=== PATIENT | male | born 1995 | race Caucasian/White ===

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

== ENCOUNTER 2017-01-11 13:06 | Emergency (ER) | payer SELFPAY ==
[2017-01-11 13:18] VITALS: BP 131/81; TEMP 97.8; O2SAT 98
--- NOTE | 2017-01-11 13:27 | ED.PDOC ---
History of Present Illness - General Chief Complaint: Allergic Reaction Stated Complaint: arm swelling and redness Time Seen by Provider: 01/11/17 13:24 Source: patient, RN notes reviewed, Vital Signs reviewed - History of Present Illness Initial Comments: Patient presents with multiple insect bites on his hands and forearms. He is having swelling of his right hand that was worse yesterday and a rash starting on his L wrist. He has not taken anything for this. He sleeps on the floor at his grandparents house. Has not been working outside. Timing/Duration: 24 hours Severity: moderate Improving Factors: nothing Worsening Factors: nothing Associated Symptoms: denies symptoms Allergies/Adverse Reactions: Allergies NO KNOWN ALLERGY Allergy (Verified 01/11/17 13:18) Home Medications: Ambulatory Orders methylPREDNISolone TAB [Medrol Tab] 4 mg PO DAILY #1 pack 01/11/17 Review of Systems - Review of Systems Constitutional: States: no symptoms reported EENTM: States: no symptoms reported Respiratory: States: no symptoms reported Cardiology: States: no symptoms reported Musculoskeletal: States: no symptoms reported Skin: States: see HPI Neurological: States: no symptoms reported All other Systems: No Change from Baseline Past Medical History (General) - Patient Medical History Hx Seizures: No Hx Stroke: No Hx Dementia: No Hx Asthma: No Hx of COPD: No Hx Cardiac Disorders: No Hx Congestive Heart Failure: No Hx Pacemaker: No Hx Hypertension: No Hx Thyroid Disease: No Hx Diabetes: No Hx Gastroesophageal Reflux: No Hx Renal Disease: No Hx Cancer: No Hx of HIV: No Hx Hepatitis C: No Hx MRSA: No Surgical History: no surgical history - Vaccination History Hx Tetanus, Diphtheria Vaccination: Yes Hx Influenza Vaccination: Yes Hx Pneumococcal Vaccination: No Immunizations Up to Date: Yes - Social History Hx Tobacco Use: No Hx Chewing Tobacco Use: No Hx Alcohol Use: No Hx Substance Use: No Hx Substance Use Treatment: No Hx Depression: No Hx Physical Abuse: No Hx Emotional Abuse: No Hx Suspected Abuse: No - Activities of Daily Living Hospice Agency (if applicable):: None - Female History Patient is a Female of Child Bearing Age (10 -59 yrs old): No Patient : No Family Medical History - Family History Father Living Status: Still Living Hx Family Hypertension: Yes Hx Cardiac Disease: Yes - cabg Hx Family Diabetes: Yes Maternal Grandparents Living Status: Still Living Hx Cardiac Disease: Yes - triple bypass Physical Exam - Physical Exam General Appearance: Alert, Comfortable, No apparent distress, Well Developed, Well Groomed, Well Hydrated, Well Nourished Respiratory: chest non-tender, lungs clear, normal breath sounds, no respiratory distress, no accessory muscle use Cardiovascular/Chest: regular rate, rhythm, no gallop, no murmur Extremity: normal range of motion, non-tender, normal inspection Neurologic: alert, normal mood/affect, oriented x 3 Skin Exam: other - [place] insect bites with surrounding erythema and swelling on bilateral hands and forearms. Comments: Vital Signs - 24 hr 01/11/17 13:11 Temperature 97.8 F Pulse Rate [ 80 pulse ox] Respiratory 20 Rate Blood Pressure 131/81 [Left Arm] O2 Sat by Pulse 98 Oximetry Progress - Progress Progress: 01/11/17 13:29 Patient refused steroid shot. Would prefer to take orally. 01/11/17 14:05 Patient is feeling better. Will d/c home with steroid Rx and instructions to take OTC Benadryl and/or Claritin and take cool showers. Departure - Departure Clinical Impression: Insect stings Qualifiers: Encounter type: initial encounter Injury intent: accidental or unintentional Qualified Code(s): T63.481A - Toxic effect of venom of other arthropod, accidental (unintentional), initial encounter Time of Disposition: 14:08 Disposition: Discharge to Home or Self Care Condition: Good Departure Forms: ED Discharge - Pt. Copy, Patient Portal Self Enrollment Instructions: DI for Insect Bites and Stings Diet: resume usual diet Activity: increase activity as tolerated Prescriptions: methylPREDNISolone TAB [Medrol Tab] 4 mg PO DAILY #1 pack Home Medications: Ambulatory Orders methylPREDNISolone TAB [Medrol Tab] 4 mg PO DAILY #1 pack 01/11/17 Additional Instructions: Take Benadryl and Claritin as needed Take cool showers Wash with Tincture of Green soap
[2017-01-11] MEDS ORDERED: diphenhydrAMINE HCL 25 MG CAP PO ONE (13:30)
[2017-01-11] MEDS ORDERED: predniSONE 20 MG TAB PO ONE (13:30)
== END 2017-01-11 14:15 | disposition home or self-care (01) ==
LOC: ER 13:06
DX: S60.562A Insect bite (nonvenomous) of left hand, initial encounter (principal); S60.561A Insect bite (nonvenomous) of right hand, initial encounter; S50.862A Insect bite (nonvenomous) of left forearm, initial encounter; S50.861A Insect bite (nonvenomous) of right forearm, initial encounter; W57.XXXA Bitten or stung by nonvenomous insect and other nonvenomous arthropods, initial encounter; Y92.009 Unspecified place in unspecified non-institutional (private) residence as the place of occurrence of the external cause
CPT/HCPCS: J7512; Q0163

== ENCOUNTER 2017-02-20 15:25 | Emergency (ER) | payer SELFPAY ==
--- NOTE | 2017-02-20 16:27 | ED.PDOC ---
History of Present Illness - General Chief Complaint: Eye Problems Stated Complaint: got a piece of wood in L eye Time Seen by Provider: 02/20/17 15:25 Source: patient, RN notes reviewed, Vital Signs reviewed Exam Limitations: no limitations - History of Present Illness Initial Comments: ~1 hour prior to arrival patient was cutting limbs and a piece of wood flew into his L eye. Feels like it is still present and moving around. He did flush the eye and use eye drops w/o improvement. No visual changes. No pain. Timing/Duration: abrupt Severity: mild EENT Location: eye (L) Prearrival Treatment: flushing eyes Improving Factors: nothing Worsening Factors: nothing Associated Symptoms: denies symptoms Allergies/Adverse Reactions: Allergies NO KNOWN ALLERGY Allergy (Verified 01/11/17 13:18) Home Medications: Ambulatory Orders methylPREDNISolone TAB [Medrol Tab] 4 mg PO DAILY #1 pack 01/11/17 Review of Systems - Review of Systems Constitutional: States: no symptoms reported EENTM: States: see HPI, eye pain, tearing. Denies: blurred vision, double vision Respiratory: States: no symptoms reported Cardiology: States: no symptoms reported Neurological: Denies: headache All other Systems: No Change from Baseline Past Medical History (General) - Patient Medical History Hx Seizures: No Hx Stroke: No Hx Dementia: No Hx Asthma: No Hx of COPD: No Hx Cardiac Disorders: No Hx Congestive Heart Failure: No Hx Pacemaker: No Hx Hypertension: No Hx Thyroid Disease: No Hx Diabetes: No Hx Gastroesophageal Reflux: No Hx Renal Disease: No Hx Cancer: No Hx of HIV: No Hx Hepatitis C: No Hx MRSA: No - Vaccination History Hx Tetanus, Diphtheria Vaccination: Yes Hx Influenza Vaccination: Yes Hx Pneumococcal Vaccination: No - Social History Hx Tobacco Use: No Hx Chewing Tobacco Use: No Hx Alcohol Use: No Hx Substance Use: No Hx Substance Use Treatment: No Hx Depression: No Hx Physical Abuse: No Hx Emotional Abuse: No Hx Suspected Abuse: No - Female History Patient : No Family Medical History - Family History Father Living Status: Still Living Hx Family Hypertension: Yes Hx Cardiac Disease: Yes - cabg Hx Family Diabetes: Yes Maternal Grandparents Living Status: Still Living Hx Cardiac Disease: Yes - triple bypass Physical Exam - Physical Exam General Appearance: Alert, Comfortable, No apparent distress, Well Developed, Well Groomed, Well Hydrated, Well Nourished Eye Exam: left normal - No foreign body appreciated. No abrasion seen with flurosene dye Neck: full range of motion, supple Cardiovascular/Respiratory: no respiratory distress Neurologic: alert, normal mood/affect, oriented x 3 Skin Exam: normal color, warm/dry Progress - Progress Progress: 02/20/17 18:25 feeling much better after eye flushed with 1 L of NS Procedures - Eye Procedure Left Alcaine Drops Administered: Yes - 1 Eye Irrigated w/ Saline (cc's): 1,000 Cyclogel 2 Drops Administered: No Departure - Departure Clinical Impression: Foreign body of left eye Qualifiers: Encounter type: initial encounter Qualified Code(s): T15.92XA - Foreign body on external eye, part unspecified, left eye, initial encounter Time of Disposition: 18:26 Disposition: Discharge to Home or Self Care Condition: Good Departure Forms: ED Discharge - Pt. Copy, Patient Portal Self Enrollment Instructions: DI for Foreign Body in the Eye Diet: resume usual diet Activity: increase activity as tolerated Home Medications: Ambulatory Orders methylPREDNISolone TAB [Medrol Tab] 4 mg PO DAILY #1 pack 01/11/17
[2017-02-20] MEDS ORDERED: TETRACAINE HCL 0.5% OPHTH SOL 1 DROP OPHTH ONE (16:45)
[2017-02-20] MEDS ORDERED: SODIUM CHLORIDE 0.9% 1000ML 1,000 ML IVS ONE (16:45)
[2017-02-20 18:49] VITALS: BP 122/60; TEMP 97; O2SAT 98
== END 2017-02-20 18:30 | disposition home or self-care (01) ==
LOC: ER 15:25
DX: T15.92XA Foreign body on external eye, part unspecified, left eye, initial encounter (principal); X58.XXXA Exposure to other specified factors, initial encounter; Y92.9 Unspecified place or not applicable; Y93.H2 Activity, gardening and landscaping